=== PATIENT | female | born 1995 | race Caucasian/White ===

== ENCOUNTER → 2020-03-11 15:14 | Outpatient (CLI) | payer OTHER, SELFPAY ==
[2020-03-12 08:59] LABS: COVID19 Sendout Not Detected (Not Detect)
== END ==
PROVIDERS: Visit Provider Physician Assistant
DX: Z03.818 Encounter for observation for suspected exposure to other biological agents ruled out (principal)
CPT/HCPCS: 87635

== ENCOUNTER 2021-05-26 17:59 | Emergency (ER) | payer SELFPAY ==
[2021-05-26 18:09] VITALS: BP 135/91; PULSE 100; RESP 18; TEMP 36.9; O2SAT 97; BMI 18.8
--- NOTE | 2021-05-26 18:20 | ED_ITS ---
HPI - Abdominal Pain General Chief Complaint: Abdominal Pain Stated Complaint: stomach pain/vomiting x2 days Time Seen by Provider: 05/26/21 18:20 Source: patient Mode of arrival: Ambulatory Limitations: no limitations History of Present Illness HPI narrative: 25-year-old woman with a history of recurrent episodes of emesis, ovarian cysts and ?stomach ulcers? presents with persistent vomiting starting today. She states that she had a mild upper respiratory infection about 2 weeks ago and with any type of illness she gets more anxious. Her anxiety has gotten significantly worse to the point where she is nauseated and vomits almost every morning. She states she has lost almost 20 lb in the last month. She is extraordinarily anxious with our discussion today. She states that she does smoke marijuana daily and finds that hot baths do help with her nausea. She has been to [facility] and [facility] in [place] recently for recurrent episodes of emesis. When she was in her early teens she apparently was told she had ovarian cysts and stomach ulcers. She does not recall ever having a Gastroenterology consult or upper endoscopy. She states they were following with stomach ulcers with ultrasound. She has not been on proton pump inhibitors recently she was started on Tagamet from the ultrasound at [facility] and a GI consult was recommended as well as establishing primary care physician. She is sleeping adequately at this time. She states that she did try stopping marijuana for a week but did not notice that it helped at all so resumed smoking. Her understanding of information related to her through various emergency room visits is convoluted at best. She has no specific neurologic complaints, she notes severe diffuse abdominal pain and begins quivering with pain before a even actually physically touch her abdomen. She is pale but appears well-hydrated. She states there has been no blood or coffee-ground in the emesis and she has not had any black stool. Related Data Previous Rx's Medication Instructions Recorded promethazine 25 mg rectal 25 mg [place] Q6H PRN #12 ea 05/26/21 suppository Allergies Allergy/AdvReac Type Severity Reaction Status Date / Time No Known Drug Allergies Allergy Verified 05/26/21 19:03 Review of Systems Review of Systems Narrative: Remainder of complete review of systems is otherwise unremarkable except for that included in the HPI. Patient History Medical History (Updated 05/26/21 @ 21:26 by Mariana To MD) Anxiety and depression Cannabinoid hyperemesis syndrome Ovarian cyst Social History Smoking Status: Former smoker Smoking Status: Former smoker alcohol intake frequency: 0-2 drinks per day Substance Use Type: marijuana Exam Narrative Exam Narrative: General: Frail pale anxious able to speak in full sentences HEENT: Moist mucous membranes, normal sclera with reactive pupils, Neck: supple Respiratory: Lungs are clear to auscultation, no wheezing no rales no rhonchi. Full and symmetrical air movement Cardiac: Regular rate and rhythm no murmurs no bruits Abdomen: She becomes so anxious with even the possibility of a gentle abdominal exam that I can not even touch her abdomen. She sits up and moves about the bed without obvious abdominal pain. Skin: Pale and dry, no rashes Neurologic: Grossly neurologically intact with no obvious asymmetries or abnormalities Extremities: No trauma, well perfused Psych: Cooperative, very anxious, poor insight overall Initial Vital Signs Initial Vital Signs: Vital Signs Temperature 98.4 F 05/26/21 18:09 Pulse Rate 100 H 05/26/21 18:09 Respiratory Rate 18 05/26/21 18:09 Blood Pressure 135/91 H 05/26/21 18:09 Pulse Oximetry 97 05/26/21 18:09 Course Orders Ordered: ED Orders 05/26/21 18:15 Complete Blood Count AUTO DIFF Stat Comprehensive Metabolic Panel Stat Lipase Stat 05/26/21 18:20 Urine Culture Stat Urine Microscopic Stat Discontinued Medications Diphenhydramine HCl (Diphenhydramine 50 Mg/Ml Vial) 50 mg IV NOW ONE Stop: 05/26/21 18:32 Last Admin: 05/26/21 19:10 Dose: 50 mg Documented by: MASON Haloperidol (Haloperidol 5 Mg/Ml Vial) 2 mg IV NOW ONE Stop: 05/26/21 18:32 Last Admin: 05/26/21 19:10 Dose: 2 mg Documented by: MASON Sodium Chloride (Normal Saline 0.9%) 1,000 mls @ 1,000 mls/hr IV BOLUS ONE Stop: 05/26/21 19:30 Last Infusion: 05/26/21 20:28 Dose: 0 mls/hr Documented by: Admin: 05/26/21 19:10 Dose: 1,000 mls/hr Documented by: MASON Vital Signs Vital signs: Vital Signs - 8 hr 05/26/21 18:09 Temperature 98.4 F Pulse Rate 100 H Respiratory Rate 18 Blood Pressure 135/91 H Pulse Oximetry 97 MDM - Abdominal Pain Medical Records Medical records narrative: Seen at [address] with similar complaints. Referred to Gastroenterology with recommendations follow-up with PCP. Recommended that she stop smoking marijuana with her final diagnosis being can adenoid hyperemesis syndrome. Lab Data Result diagrams: 05/26/21 18:15 05/26/21 18:15 Labs: Lab Results 05/26/21 05/26/21 05/26/21 Range/Units 18:15 18:15 18:20 WBC 9.7 (4.5-11.0) X10^3/uL RBC 4.51 (4.0-5.2) X10^6/uL Hgb 13.8 (12.0-16.0) g/dL Hct 40.8 (36-46) % MCV 90.5 (80-100) fL MCH 30.6 (26-34) PG MCHC 33.8 (30-36) % RDW 12.8 (11.6-14.8) % Plt Count 151 (150-400) X10^3/uL Neut % (Auto) 83.2 H (50-75) % Lymph % (Auto) 11.9 L (25-40) % Travis % (Auto) 4.3 (3-14) % Eos % (Auto) 0.2 L (2-4) % Baso % (Auto) 0.4 (0-2) % Neut # (Auto) 8000 H (6727-3751) /uL Lymph # (Auto) 1200 (6557-5757) /uL Travis # (Auto) 400 (0-900) /uL Eos # (Auto) 0 (0-450) /uL Baso # (Auto) 0 (0-100) /uL Sodium 140 (137-145) mmol/L Potassium 3.6 (3.4-5.1) mmol/L Chloride 106 (98-107) mmol/L Carbon Dioxide 23 (22-32) mmol/L BUN 8 (7-17) mg/dL Creatinine 0.54 (0.52-1.04) mg/dL Estimated GFR > 60.0 (>60) mL/min BUN/Creatinine Ratio 14.8 (6-22) Glucose 117 H (70-100) mg/dL Calcium 9.9 (8.4-10.2) mg/dL Total Bilirubin 0.7 (0.2-1.3) mg/dL AST 21 (14-36) IU/L ALT 16 (<35) IU/L Alkaline Phosphatase 45 (38-126) U/L Total Protein 7.4 (6.3-8.2) g/dL Albumin 4.8 (3.5-5.0) g/dL Globulin 2.6 (1.7-4.1) g/dL Albumin/Globulin Ratio 1.8 (1.0-2.8) Lipase 60 (23-300) U/L Urine RBC 0-1/hpf (0-5/HPF) Urine WBC 5-10/hpf H (0-5/HPF) Ur Squamous Epith Cells 1-5 /hpf (0-5/HPF) Amorphous Sediment 1+ Urine Bacteria Occasional (0-1) (None) Urine Mucus 2+ H (Negative) Ur Culture Indicated? Specimen cultured Point of care testing: Point of Care Testing Test Results Negative Urine Dip Bedside Urine Glucose Negative Bedside Urine Bilirubin - Negative Bedside Urine Ketone +++ 80 Urine Specific [place] 1.030 Bedside Urine Occult Blood +/- Bedside Urine pH 6.0 Bedside Urine Protein + 30 Bedside Urine Urobilinogen - Negative Bedside Urine Nitrite - Negative Bedside Urine Leukocytes - Negative Esterase MDM Narrative Medical decision making narrative: 25-year-old woman presents with recurrent episodes of severe vomiting. Labs are unremarkable exam is demonstrating significant affect of behavior but no obvious clinical abnormalities. She has responded well to fluids, IV Benadryl and IV Haldol. She is able to tolerate fluids at this point. We had a long discussion regarding cannabinoid hyperemesis syndrome. Given the fact that she is a regular marijuana user, is having vicious episodes of emesis without other physical abnormalities and improved significantly with hot baths I think this is an appropriate diagnosis. She is planning on moving to [place] at the 02 of June and hopefully will be able to establish with a primary care doctor to discuss depression and anxiety issues and a security system technician to see if she does in fact have any ulcers. Strongly recommended that she do her in own independent research on cannabinoid hyperemesis syndrome to better educate herself and help encourage her to stay away from marijuana. Recommended a minimum of 3 months abstinence to see what her symptoms did. She was willing to consider. In the meantime will give her prescription for Phenergan suppositories to see if we can prevent continued ER visits. Questions were answered and she is safe for home discharge Discharge Plan Departure Patient Disposition: Home Clinical Impression: Cannabinoid hyperemesis syndrome Instructions: DI for Cannabinoid Hyperemesis Syndrome Activity Restrictions/Additional Instructions: Thank you for coming in today You were given fluid, Haldol and Benadryl to help with your nausea. I have given you a prescription for Phenergan suppositories which is closer to Haldol in the way it works and treating your nausea. Unfortunately, with cannabanoid hyperemesis syndrome most anti nausea medications are not very effective. I encourage you to do your own independent research on cannabanoid hyperemesis syndrome. [employer] has had some very good articles and discussions on the syndrome. I strongly recommend that you completely stop using marijuana. It needs to be for a minimum of 3 months to truly get out of your system and begin to notice beneficial affects. Prescriptions: New promethazine 25 mg suppository 25 mg [place] Q6H PRN (Reason: nausea and vomiting) Qty: 12 RF: 1
[2021-05-26 18:26] LABS: Add Manual Diff / Slide Review NO; Basophils Absolute Auto 0 /uL (0-100); Basophils Percent Auto 0.4 % (0-2); Eosinophils Absolute Auto 0 /uL (0-450); Eosinophils Percent Auto 0.2 % (2-4); Hematocrit 40.8 % (36-46); Hemoglobin 13.8 g/dL (12.0-16.0); Lymphocytes Absolute Auto 1200 /uL (1100-4500); Lymphocytes Percent Auto 11.9 % (25-40); Mean Corpuscular HGB Conc 33.8 % (30-36); Mean Corpuscular Hemoglobin 30.6 PG (26-34); Mean Corpuscular Volume 90.5 fL (80-100); Monocytes Absolute Auto 400 /uL (0-900); Monocytes Percent Auto 4.3 % (3-14); Neutrophils Absolute Auto 8000 /uL (1500-7000); Neutrophils Percent Auto 83.2 % (50-75); Platelet Count 151 X10^3/uL (150-400); Red Blood Cell Count 4.51 X10^6/uL (4.0-5.2); Red Cell Distribution Width 12.8 % (11.6-14.8); White Blood Cell Count 9.7 X10^3/uL (4.5-11.0)
[2021-05-26 18:38] LABS: Alanine Aminotransferase 16 IU/L (<35); Albumin 4.8 g/dL (3.5-5.0); Albumin Globulin Ratio 1.8 (1.0-2.8); Alkaline Phosphatase 45 U/L (38-126); Aspartate Aminotransferase 21 IU/L (14-36); BUN Creatinine Ratio 14.8 (6-22); Bilirubin Total 0.7 mg/dL (0.2-1.3); Blood Urea Nitrogen 8 mg/dL (7-17); Calcium 9.9 mg/dL (8.4-10.2); Carbon Dioxide 23 mmol/L (22-32); Chloride 106 mmol/L (98-107); Estimated Glomerular Filt Rate > 60.0 mL/min (>60); Globulin 2.6 g/dL (1.7-4.1); Glucose 117 mg/dL (70-100); HEMOLYSIS < 15 (0-50); Lipase 60 U/L (23-300); Potassium 3.6 mmol/L (3.4-5.1); Sodium 140 mmol/L (137-145); Total Protein 7.4 g/dL (6.3-8.2)
[2021-05-26 18:50] LABS: RBC Urine 0-1/HPF (0-5/HPF); WBC Urine 5-10/HPF (0-5/HPF)
[2021-05-26 18:51] LABS: Amorphous Sediment Urine 1+; Bacteria Urine Occasional (0-1); Culture Indicated Urine Specimen Cultured; Mucus Urine 2+ (Negative); Squamous Epithelial Cell Urine 1-5 /HPF (0-5/HPF)
[2021-05-26] MEDS: diphenhydrAMINE 50 MG/ML VIAL IV (19:10)
[2021-05-26] MEDS: SODIUM CHLORIDE 0.9% 1,000 ML 1000 ML IV (19:10)
[2021-05-26] MEDS: HALOPERIDOL 5 MG/ML VIAL 2 MG IV (19:10)
[2021-05-26 21:20] VITALS: BP 106/78; PULSE 71; RESP 16; O2SAT 98
== END 2021-05-26 21:39 | disposition home or self-care (01) ==
PROVIDERS: Emergency Provider Emergency Medicine
DX: R11.2 Nausea with vomiting, unspecified (principal); F12.90 Cannabis use, unspecified, uncomplicated
CPT/HCPCS: 36415; 80053; 81003; 81015; 81025; 83690; 85025; 87086; 96361; 96374; 96375; 99284; J1200; J1630